=== PATIENT | male | born 1990 | race Hispanic/Latino ===

== ENCOUNTER 2025-01-13 21:40 | Emergency (ER) | payer MEDICAID ==
[~2025-01-13] VITALS: Ht 160 cm; Wt 54.4 kg
[2025-01-13 21:44] VITALS: BP 143/97; PULSE 92; RESP 20; TEMP 98.9
--- NOTE | 2025-01-13 22:02 | NUR ---
PT REFUSING VITALS SIGNS TO BE TAKEN, BLOODWORK, AND EKG. ER CREAM GATHERER MADE AWARE AT THIS TIME.
--- NOTE | 2025-01-13 22:27 | ERN ---
ED Note History of Present Illness Stated Complaint: SOB, RAN OUT OF HOME O2 Chief Complaint: Other Problems Time Seen by MD: 22:00 Time Seen by Midlevel: 22:08 Dictation: 34-year-old male coming in via EMS because his oxygen tanks finished. Patient s mary he was at [facility] and on the way back he did not have anymore oxygen so he called 911. Patient states he has a portable concentrated are at home but he lives in [facility]. Allergies: Coded Allergies: No Known Drug Allergies (Unverified Allergy, Unknown, 01/13/25) Past Medical History Past Medical History: Anxiety, Diabetes-Type II, High Cholesterol, Hypertension, Renal Failure Surgical History: Unknown Review of System Dictation Constitutional: Negative for fever,chills, and weight loss Eyes: Negative for injury, pain,redness, and discharge ENT: Negative for injury,pain or swelling Cardiovascular: Negative for chest pain, palpitations, and edema Respiratory: Negative for shortness of breath, cough, and wheezing, Abdomen/GI: Negative for abdominal pain, nausea, vomiting, diarrhea, and constipation Back: Negative for injury and pain : Negative for injury, bleeding and discharge MS/Extremity: Negative for injury and deformity Skin: Negative for rash, and discoloration Neuro: Negative for headache, weakness, numbness, tingling, and seizure Psych: Negative for suicide ideation, homicidal ideation, and hallucinations Review of Systems: was completed Initial Vital Sign VS Vital Signs Date Time Temp Pulse Resp B/P (MAP) Pulse Ox O2 Delivery O2 Flow Rate FiO2 01/13/25 21:44 99.0 92 20 143/97 98 Nasal Cannula 2.0 01/13/25 22:24 28 Physical Exam Dictation General: awake, alert, NAD Head/Face: Normocephalic, atraumatic Eyes: PERRL, EOMI, vision at baseline ENT: oral cavity clear, TMs clear, no signs of infection Neck: Trachea midline, supple, no nuchal rigidity Cardiovascular: RRR, normal S1/S2, No MRGs, no JVD Respiratory: CTAB, no respiratory distress, No rales or wheezes Abdomen: Soft, non-tender, non-distended, normal bowel sounds, no guarding or rebound. Skin: Warm, dry, normal turgor, no rash MS/Extremity: Pulses equal, no cyanosis, neurovascular intact, FROM Neuro: COAx4, GCS 15, strength 5/5, CN 2-12 intact, normal cerebellar exam, normal gait, Psych: Normal behavior, mood, and affect normal Results (Laboratory/Radiology) Laboratory/Radiology Laboratory Tests Test 01/13/25 22:37 White Blood Count 8.7 K/uL (4.8-10.8) Red Blood Count 3.56 MIL/uL (4.50-6.20) L Hemoglobin 9.6 g/dL (14.0-18.0) L Hematocrit 31.6 % (42-54) L Mean Corpuscular Volume 88.8 fL (79-99) Mean Corpuscular Hemoglobin 27.0 pg (27.0-33.0) Mean Corpuscular Hemoglobin Concent 30.4 g/dL (32.0-36.0) L Red Cell Distribution Width 15.3 % (11.0-15.5) Platelet Count 88 K/uL (130-400) L Mean Platelet Volume 11.4 fL (7.5-10.5) H Immature Granulocyte % (Auto) 0.5 % (0-1) Neutrophils (%) (Auto) 65.7 % (40.0-77.0) Lymphocytes (%) (Auto) 21.2 % (21.0-51.0) Monocytes (%) (Auto) 9.9 % (3.0-13.0) Eosinophils (%) (Auto) 2.4 % (0.0-8.0) Basophils (%) (Auto) 0.3 % (0.0-5.0) Neutrophils # (Auto) 5.7 K/uL (1.8-7.7) Lymphocytes # (Auto) 1.9 K/uL (1.0-4.8) Monocytes # (Auto) 0.9 K/uL (0.1-1.0) Eosinophils # (Auto) 0.21 K/uL (0.00-0.70) Basophils # (Auto) 0.03 K/uL (0.00-0.20) Absolute Immature Granulocyte (auto 0.04 K/uL (0-1) Nucleated Red Blood Cells 0.0 % (0.0-0.19) Sodium Level 134 mmol/L (136-145) L Potassium Level 4.4 mmol/L (3.5-5.1) Chloride Level 102 mmol/L (101-111) Carbon Dioxide Level 23 mmol/L (21-32) Blood Urea Nitrogen 20 mg/dL (7-18) H Creatinine 2.7 mg/dL (0.5-1.3) H Glomerular Filtration Rate Calc 31 mL/min (>90) Random Glucose 315 mg/dL (70-105) H Total Calcium 8.0 mg/dL (8.5-10.1) L Labs Reviewed?: Yes ED Course ED Course Orders Procedure Category Date Status Time Cbc With Differential LAB 01/13/25 In Process 21:56 Basic Metabolic Panel LAB 01/13/25 Complete 21:56 12 Lead Ekg Tracing- EKG 01/13/25 Logged Technical 21:56 Vital Signs Date Time Temp Pulse Resp B/P (MAP) Pulse Ox O2 Delivery O2 Flow Rate FiO2 01/13/25 22:24 Nasal Cannula* 2 28 01/13/25 21:44 99.0 92 20 143/97 98 Nasal Cannula 2.0 Medical Decision Making MDM MDM: 34-year-old male coming in via EMS because his oxygen tanks finished. Patient states he was at [facility] and on the way back he did not have anymore oxygen so he called 911. Patient states he has a portable concentrated are at home but he lives in [facility]. Patient is refusing lab work. In his refusing the primary nurse to take vital signs. Charge nurse spoke to family over the phone, states at that he always gets sent home via ambulance. CBC unremarkable. Chemistry unremarkable with a potassium of 4.4. Patient is a bruising vital signs still and refusing EKGs. Pending EMS to fit apple picker to transfer back to his house. Differential diagnosis: Low O2 sats, medical equipment malfunction Rationale: Tests considered and ordered secondary to shared decision making include: Previous outside records reviewed: Old ER visits. Risk of complication and/or morbidity or mortality of patient management: None Medications-Per medication reconciliation Need for hospitalization: Patient does not meet criteria for hospitalization. Need for emergency major/minor surgery: No There are no social concerns with this patient. Prescription drug management Prescriptions will include symptomatic care Patient's prior external medical records from other ER visits were reviewed by me as indicated. Prior testing and results from previous visits were reviewed. Prior tests were taken into account with medical decision making and resource utilization, independent historian/historians were used to obtain complete medical history. I independently interpreted the test that were performed, results were reviewed by me and considered findings on radiology if ordered. Medical management and examination interpretation discussions were had by me wi th other qualified healthcare professionals as indicated for the patient's care. DX & DISP Disposition: Discharge Departure Impression: Primary Impression: Oxygen dependent Additional Impression: ESRD (end stage renal disease) Condition: Stable Referrals: SELF,REFERRAL (PCP) Time of Disposition: 23:06 I have reviewed the case, and I agree with, Diagnosis and Plan VIRGILIO SPENCER NP Jan 13, 2025 22:27
--- NOTE | 2025-01-13 22:32 | NUR ---
PT ALLOWING FOR BLOOD DRAW AT THIS TIME.
[2025-01-13 22:45] LABS: IMMATURE GRANULOCYTE ABSOLUTE 0.04 K/uL (0-1); NUCLEATED RED BLOOD CELLS 0.0 % (0.0-0.19); PLATELET COUNT (AUTO) 88 K/uL (130-400); RED BLOOD CELL COUNT(AUTO) 3.56 MIL/uL (4.50-6.20); RED CELL DISTRIBUTION WIDTH 15.3 % (11.0-15.5); WHITE BLOOD COUNT (AUTO) 8.7 K/uL (4.8-10.8)
[2025-01-13 22:54] LABS: CREATININE 2.7 mg/dL (0.5-1.3); GLOMERULAR FILTR. RATE CALC 31.0 mL/min (>90); GLUCOSE,RANDOM 315.0 mg/dL (70-105); SODIUM SERUM 134.0 mmol/L (136-145); UREA NITROGEN, BLOOD 20.0 mg/dL (7-18)
--- NOTE | 2025-01-13 23:21 | NUR ---
[facility] CONTACTED FOR TRANSFER HOME
--- NOTE | 2025-01-14 04:08 | NUR ---
FAMILY MEMBER CONNOR PHONE # [phone]
--- NOTE | 2025-01-14 04:58 | NUR ---
[facility] CONTACTED AT THIS TIME REGARDING PATIENT TRANSPORT TO HOME. PER THE [facility] MANUFACTURING COORDINATOR, THERE IS A STAFFING ISSUE AND A ETA IS UNAVAILABLE AT THIS TIME, HOWEVER SHE REPORTS THAT THE PATIENT IS STILL ON THE LIST.
--- NOTE | 2025-01-14 07:10 | NUR ---
ASSUMED PATIENT CARE AT THIS TIME
--- NOTE | 2025-01-14 07:45 | NUR ---
PATIENT ALERT X4 AND REFUSING VITAL SIGNS, PATIENT RESTING IN BED, CALL LIGHT IN REACH
--- NOTE | 2025-01-14 07:53 | NUR ---
I NOTICED HIS RIGHT ARM HAS +2 PITTING EDEMA, HE ALSO HAS A RIGHT PORT A CATH PLACED ON RIGHT UPPER CHEST, STATES HE HAS DIALYSIS TODAY, I ASKED IF HE PLANS ON GOING AFTER HE LEAVES FROM HOSPITAL AND HE STATED "OH YES", PATIENT ALSO HAS A RIGHT NEPHROSTOMY TUBE PLACED UPON ARRIVAL, STATED HE "HAD IT FOR A WHILE ALREADY" PATIENT RESTING IN BED, CALL LIGHT IN REACH
--- NOTE | 2025-01-14 08:00 | NUR ---
PATIENT ALERT X4, GOT PATIENT REFUSAL FORM SIGNED BY PATIENT, ENMANUEL LEGER RN PRESENT WITNESS, PATIENT RESTING IN BED, CALL LIGHT IN REACH
--- NOTE | 2025-01-14 08:34 | NUR ---
SPOKE TO MARISEL FROM [facility], STATED "WE HAVE HIM ON THE LIST, AND WILL SEND A UNIT ONCE ITS AVAILABLE" PATIENT RESTING IN BED, CALL LIGHT IN REACH
--- NOTE | 2025-01-14 08:42 | NUR ---
SPOKE TO YOAN FROM [facility], STATED THEY WILL SEND TRANSPORT AROUND 9AM
--- NOTE | 2025-01-14 08:52 | NUR ---
SPOKE TO NAOMY FROM [facility] [phone], STATED THEY SPOKE TO PATIENT FAMILY IN REGARDS TO TRANSFER, BUT THEY WERE 2 HOURS AWAY, I LET THEM KNOW [facility] IS ON THEIR WAY TO COMMUNICATIONS SUPERVISOR PATIENT FOR TRANFER. I LET NAOMY KNOW IF [facility] DOESNT COME WITHIN 9AM HOUR THAT I WOULD CALL HER BACK AND UPDATE HER, PATIENT RESTING IN BED, CALL LIGHT IN REACH
--- NOTE | 2025-01-14 09:42 | NUR ---
CALLED [facility] AGAIN IN REGARDS TO TRANSPORT, STATED "THEY ARE GETTING SITUATED AND WILL BE THERE SHORTLY" PATIENT RESTING IN BED, CALL LIGHT IN REACH
--- NOTE | 2025-01-14 10:31 | NUR ---
LAUREN ARRIVED TO UTILITY MANAGER PATIENT, NO COMPLICATIONS Addendum: 01/14/25 at 1033 roshan BAKER CALLED AND SPOKE TO PATIENTS MOTHER CONNOR ABOUT TRANSPORT
== END 2025-01-13 23:17 | disposition home or self-care (01) ==
LOC: EDH 21:40
DX: I12.0 Hypertensive chronic kidney disease with stage 5 chronic kidney disease or end stage renal disease (principal); E11.22 Type 2 diabetes mellitus with diabetic chronic kidney disease; N18.6 End stage renal disease; E78.00 Pure hypercholesterolemia, unspecified; Z99.81 Dependence on supplemental oxygen
CPT/HCPCS: 36415; 80048; 85025; 99284